=== PATIENT | female | born 1995 | race Two or more races ===

== ENCOUNTER 2023-01-03 12:06 | Inpatient (IN) | payer OTHER ==
[2023-01-03] MEDS ORDERED: PRENATAL TABLE1 EAC4 PO (12:22)
[2023-01-03] MEDS ORDERED: FERRLECIT62.5 MG/2 IV (12:27)
== END 2023-01-06 13:56 | disposition home or self-care (01) | DRG 807 ==
LOC: LDR 12:06 → OB/GYN 21:21
PROVIDERS: ADMIT Obstetrics & Gynecology; ATTEND Obstetrics & Gynecology
PROC: 10E0XZZ Delivery of Products of Conception, External Approach (ICD-10-PCS; principal; 2023-01-03)
PROC: 0KQM0ZZ Repair Perineum Muscle, Open Approach (ICD-10-PCS; 2023-01-03)
PROC: 0UQMXZZ Repair Vulva, External Approach (ICD-10-PCS; 2023-01-03)
PROC: 0W8NXZZ Division of Female Perineum, External Approach (ICD-10-PCS; 2023-01-03)
DX: O70.1 Second degree perineal laceration during delivery (principal); O99.02 Anemia complicating childbirth; D50.8 Other iron deficiency anemias; O71.82 Other specified trauma to perineum and vulva; O99.824 Streptococcus B carrier state complicating childbirth; Z37.0 Single live birth; Z3A.38 38 weeks gestation of pregnancy